=== PATIENT | female | born 1995 | race Caucasian/White ===

== ENCOUNTER → 2017-10-28 | Emergency (ER) | payer OTHER ==
[~2017-10-28] VITALS: Ht 152.4 cm; Wt 49.9 kg
[~2017-10-28] MED LIST: BACTRIM DS TAB1 EACH PO; URIN D.S. TABL1 EACH PO
== END | disposition home or self-care (01) ==
LOC: ER 22:38
DX: N39.0 Urinary tract infection, site not specified (principal)